=== PATIENT | female | born 1990 | race Two or more races ===

== ENCOUNTER 2025-01-18 08:15 | Inpatient (IN) | payer OTHER ==
[~2025-01-18] VITALS: Ht 167.6 cm; Wt 4.1 kg
[~2025-01-18 08:15] MED LIST: PRENATAL + DHA1 EAC1 PO
[2025-01-18 14:15] LABS: BASO % 0.2 % (0.1-1.2); EOS # 0.07 (0.04-0.54); EOS % 0.7 % (0.7-7.0); LYMPH # 1.79 (1.18-3.74); LYMPH % 19.1 % (19.3-53.1); MEAN PLATELET VOLUME 12.40 fl (9.4-12.4); MONO # 0.61 (0.24-0.82); MONO % 6.5 % (4.7-12.5); NEUT # 6.81 (1.56-6.13); NEUT % 73.0 % (34.0-71.1); RED CELL DISTRIBUTION WIDTH 15.0 % (11.6-14.4)
[2025-01-18 14:16] LABS: URINE APPEARANCE Clear; URINE BILIRRUBIN Negative (NEGATIVE); URINE BLOOD Negative; URINE COLOR Yellow; URINE GLUCOSE Negative (NEGATIVE); URINE KETONE Negative (NEGATIVE); URINE LEUKOCYTE Negative; URINE NITRATE Negative; URINE PROTEIN Negative (NEGATIVE); URINE UROBILINOGEN 0.2 E.U./dl
[2025-01-18 14:20] LABS: URINE EPITHELIAL CELLS 45.6 uL (0.0-38.8); URINE RBC 8.2 uL (0.0-20.8); URINE WBC 75.9 uL (0.0-23.2)
[2025-01-18 14:41] LABS: ALT/SGPT 21.0 U/L (12-78); AST/SGOT 23.0 U/L (15-37); BILIRUBIN TOTAL 0.68 mg/dL (0.3-1.2); BUN CREA RATIO 10.0 (7.0-25.0); CREATININE SERUM 0.51 mg/dL (0.55-1.02); GFR 138.04; GLOBULINA 3.5 G/DL (2.4-3.5); GLUCOSE FASTING 84.0 mg/dL (65-100); OSMOLALITY SERUM 276.0 MOSM/KG (275-295)
[2025-01-18 14:45] LABS: INR < 0.93
[2025-01-18 15:23] LABS: URINE CAST 0.29 uL (0.0-1.40)
[2025-01-18 15:24] LABS: TYPE CELLS SQUAMOUS; URINE MUCUS SCANT
[2025-01-26 06:10] VITALS: BP 114/77
[2025-01-26] MEDS ORDERED: OXYTOCIN 10 UNITS/ML VIAL ONE (07:04)
[2025-01-26] MEDS ORDERED: ERYTHROMYCIN BASE OPHT 1GM EACH TUBE OP ONE (07:05)
[2025-01-26] MEDS ORDERED: CEFAZOLIN SODIUM 1,000 MG VIAL ONE (07:05)
[2025-01-26] MEDS ORDERED: MORPHINE SULFATE 4 MG/ML VIAL IV PRN (10:00)
[2025-01-26 13:13] VITALS: BP 119/75
[2025-01-26 16:48] VITALS: BP 150/80
[2025-01-26 21:49] VITALS: BP 113/76
[2025-01-27 00:47] VITALS: BP 115/75
[2025-01-27 02:25] LABS: BASO % 0.2 % (0.1-1.2); EOS # 0.01 (0.04-0.54); EOS % 0.1 % (0.7-7.0); LYMPH # 1.22 (1.18-3.74); LYMPH % 10.1 % (19.3-53.1); MEAN PLATELET VOLUME 13.90 fl (9.4-12.4); MONO # 0.69 (0.24-0.82); MONO % 5.7 % (4.7-12.5); NEUT # 10.05 (1.56-6.13); NEUT % 83.2 % (34.0-71.1); RED CELL DISTRIBUTION WIDTH 15.1 % (11.6-14.4)
[2025-01-27] MEDS ORDERED: ACETAMINOPHEN 500 MG GEL..CAP PO PRN (07:30)
[2025-01-27 09:54] VITALS: BP 117/68
[2025-01-27 16:00] VITALS: BP 100/62
[2025-01-28] VITALS: BP 122/72
[2025-01-28 09:51] VITALS: BP 125/75
[2025-01-28 16:08] VITALS: BP 133/87
[2025-01-29 01:13] VITALS: BP 121/79
[2025-01-29] MEDS ORDERED: IBUPROFEN800 MG PO (07:56)
[2025-01-29 09:39] VITALS: BP 124/75
== END 2025-01-29 16:11 | disposition home or self-care (01) | DRG 785 ==
LOC: O/R 01-26 06:00 → OB/GYN 01-26 08:15
PROVIDERS: ADMIT Specialist; ATTEND Specialist
PROC: 0UB70ZZ Excision of Bilateral Fallopian Tubes, Open Approach (ICD-10-PCS; 2025-01-26)
PROC: 4A1HXCZ Monitoring of Products of Conception, Cardiac Rate, External Approach (ICD-10-PCS; 2025-01-26)
PROC: 10D00Z1 Extraction of Products of Conception, Low, Open Approach (ICD-10-PCS; principal; 2025-01-26 11:30)
DX: O34.211 Maternal care for low transverse scar from previous cesarean delivery (principal); Z3A.38 38 weeks gestation of pregnancy; Z30.2 Encounter for sterilization; Z37.0 Single live birth